=== PATIENT | male | born 1970 | race Caucasian/White ===

== ENCOUNTER → 2016-12-20 | Outpatient (CLI) | payer OTHER ==
[2016-12-20 17:05] LABS: ALBUMIN 4.1 GM/DL (3.2-5.2); ALBUMIN/GLOBULIN RATIO 1.46 (1.00-1.93); ALKALINE PHOSPHATASE 54 U/L (45-117); ALT/SGPT 50 U/L (12-78); ANION GAP 8 MEQ/L (8-16); AST/SGOT 30 U/L (15-37); BILIRUBIN,TOTAL 1.3 MG/DL (0.2-1.0); BLOOD UREA NITROGEN 11 MG/DL (7-18); CALCIUM LEVEL 9.4 MG/DL (8.5-10.1); CARBON DIOXIDE LEVEL 29 MEQ/L (21-32); CHLORIDE LEVEL 102 MEQ/L (98-107); CHOLESTEROL LEVEL 184 MG/DL (<200); CREATININE FOR GFR 1.07 MG/DL (0.70-1.30); FREE T4 1.06 NG/DL (0.76-1.46); GLOMERULAR FILTRATION RATE > 60.0 (>60); GLUCOSE, FASTING 81 MG/DL (70-105); SODIUM LEVEL 139 MEQ/L (136-145); TOTAL PROTEIN 6.9 GM/DL (6.4-8.2); TRIGLYCERIDES LEVEL 187 MG/DL (<150)
[2016-12-20 18:00] LABS: MEAN CORPUSCULAR HEMOGLOBIN 31.3 pg (27.0-33.0); MEAN CORPUSCULAR HGB CONC 34.2 g/dl (32.0-36.5); MEAN CORPUSCULAR VOLUME 91.4 fl (80.0-96.0); RED CELL DISTRIBUTION WIDTH 12.2 % (11.5-14.5); WHITE BLOOD COUNT 6.8 K/mm3 (4.0-10.0)
[2016-12-20 19:15] LABS: EOSINOPHILS 1 % (0-5)
== END ==
LOC: M WUC 12:09
PROVIDERS: ATTEND Physician Assistant
DX: I10 Essential (primary) hypertension (principal)

== ENCOUNTER → 2018-08-16 | Outpatient (CLI) | payer OTHER ==
[2018-08-16 13:29] LABS: BASO # 0.1 10^3/uL (0.0-0.2); BASO % 0.9 % (0.0-1.0); EOS # 0.1 10^3/uL (0.0-0.50); EOS % 1.5 % (0.0-3.0); HEMATOCRIT 48.9 % (42.0-52.0); HEMOGLOBIN 16.8 g/dl (13.5-17.5); IMMATURE GRANULOCYTE % 0.3 % (0-3.0); LYMPH # 1.5 10^3/uL (1.5-4.5); LYMPH % 22.4 % (24.0-44.0); MEAN CORPUSCULAR HEMOGLOBIN 30.8 pg (27.0-33.0); MEAN CORPUSCULAR HGB CONC 34.4 g/dl (32.0-36.5); MEAN CORPUSCULAR VOLUME 89.7 fl (80.0-96.0); MONO # 0.8 10^3/uL (0.0-0.8); MONO % 11.2 % (0.0-5.0); NEUTROPHILS # 4.3 10^3/uL (1.8-7.7); NEUTROPHILS % 63.7 % (36.0-66.0); PLATELET COUNT, AUTOMATED 303 10^3/uL (150-450); RED BLOOD COUNT 5.45 10^6/uL (4.30-6.10); WHITE BLOOD COUNT 6.7 10^3/uL (4.0-10.0)
[2018-08-16 14:02] LABS: ALBUMIN 4.2 GM/DL (3.2-5.2); ALBUMIN/GLOBULIN RATIO 1.31 (1.00-1.93); ALKALINE PHOSPHATASE 52 U/L (45-117); ALT/SGPT 41 U/L (12-78); AMYLASE 62 U/L (25-115); ANION GAP 9 MEQ/L (8-16); AST/SGOT 21 U/L (7-37); BILIRUBIN,TOTAL 2.4 MG/DL (0.2-1.0); BLOOD UREA NITROGEN 11 MG/DL (7-18); CARBON DIOXIDE LEVEL 28 MEQ/L (21-32); CHLORIDE LEVEL 103 MEQ/L (98-107); CK-MB VALUE MASS < 1.0 NG/ML (<3.6); CPK CREATINE PHOSPHOKINASE 122 U/L (39-308); CREATININE FOR GFR 1.14 MG/DL (0.70-1.30); FREE T4 1.14 NG/DL (0.76-1.46); GLOMERULAR FILTRATION RATE > 60.0 (>60); GLUCOSE, FASTING 91 MG/DL (70-100); LIPASE 120 U/L (73-393); MB/CK RELATIVE INDEX 0.82 (< OR =4); POTASSIUM SERUM 4.2 MEQ/L (3.5-5.1); SODIUM LEVEL 140 MEQ/L (136-145); TOTAL PROTEIN 7.4 GM/DL (6.4-8.2)
== END ==
LOC: M WUC 12:28
DX: R07.9 Chest pain, unspecified (principal)
CPT/HCPCS: 82150

== ENCOUNTER 2018-09-02 09:08 | Day surgery (SDC) | payer OTHER ==
[~2018-09-02] VITALS: Ht 188 cm; Wt 148.3 kg
[~2018-09-02 09:08] MED LIST: LOSA25TA14 PO; ZANTTAB PO
[2018-09-02] MEDS ORDERED: fentaNYL 100 MCG/2 ML INJECTION (J3010) As Ordered ONE (11:27)
[2018-09-02] MEDS ORDERED: LIDOCAINE 2% INJ 100 MG/5 ML SDV (FOR ANES.) As Ordered ONE (11:27)
[2018-09-02] MEDS ORDERED: PROPOFOL 200 MG/20 ML VIAL As Ordered ONE (11:27)
--- NOTE | 2018-09-02 11:35 | ROOR ---
Patient Name: Aneesh Riley Procedure Date: 09/02/2018 11:14 AM Date of : 1970 Age: 48 Room: [facility] Gender: Male Note Status: Finalized Procedure: Upper GI endoscopy Indications: Epigastric abdominal pain Providers: Ric Paiz MD Referring MD: Rolf Rg NP Requesting Provider: Medicines: Monitored Anesthesia Care Complications: No immediate complications. Procedure: Pre-Anesthesia Assessment: - Prior to the procedure, a History and Physical was performed, and patient medications and allergies were reviewed. The patient is competent. The risks and benefits of the procedure and the sedation options and risks were discussed with the patient. All questions were answered and informed consent was obtained. Patient identification and proposed procedure were verified by the physician, the nurse and the plant controller in the endoscopy suite. Mental Status Examination: alert and oriented. Airway Examination: normal oropharyngeal airway and neck mobility. Respiratory Examination: clear to auscultation. CV Examination: normal. Prophylactic Antibiotics: The patient does not require prophylactic antibiotics. Prior Anticoagulants: The patient has taken no previous anticoagulant or antiplatelet agents. ASA Grade Assessment: II - A patient with mild systemic disease. After reviewing the risks and benefits, the patient was deemed in satisfactory condition to undergo the procedure. The anesthesia plan was to use monitored anesthesia care (MAC). Immediately prior to administration of medications, the patient was re-assessed for adequacy to receive sedatives. The heart rate, respiratory rate, oxygen saturations, blood pressure, adequacy of pulmonary ventilation, and response to care were monitored throughout the procedure. The physical status of the patient was re-assessed after the procedure. The Endoscope was introduced through the mouth, and advanced to the second part of duodenum. The upper GI endoscopy was accomplished without difficulty. The patient tolerated the procedure well. Findings: There is no endoscopic evidence of bleeding, esophagitis, inflammation, stenosis or stricture in the entire esophagus. A small hiatal hernia was present. The Z-line was regular and was found 40 cm from the incisors. Two localized, diminutive non-bleeding erosions were found at the pylorus. There were no stigmata of recent bleeding. Biopsies were taken with a cold forceps for Helicobacter pylori testing. Estimated blood loss was minimal. The duodenal bulb, first portion of the duodenum and second portion of the duodenum were normal. Impression: - Small hiatal hernia. - Z-line regular, 40 cm from the incisors. - Non-bleeding erosive gastropathy. Biopsied. - Normal duodenal bulb, first portion of the duodenum and second portion of the duodenum. Recommendation: - Telephone my office for pathology results in 2 weeks. - Continue present medications. - Discharge patient to home (ambulatory). Ric Paiz MD Ric Paiz MD 09/02/2018 11:34:42 AM This report has been signed electronically. Number of Addenda: 0 Note Initiated On: 09/02/2018 11:14 AM Estimated Blood Loss: Estimated blood loss was minimal.
[2018-09-02 12:05] VITALS: BP 133/87
== END 2018-09-02 12:03 | disposition home or self-care (01) ==
LOC: M OPP 09:08
PROVIDERS: ATTEND Surgery
DX: K44.9 Diaphragmatic hernia without obstruction or gangrene (principal); K31.89 Other diseases of stomach and duodenum; R10.13 Epigastric pain
CPT/HCPCS: 43239; 88305; J3010

== ENCOUNTER → 2019-03-09 | Outpatient (REF) | payer OTHER ==
[2019-03-09 18:50] LABS: AMYLASE 66 U/L (25-115); LIPASE 118 U/L (73-393)
== END ==
LOC: M LAB REF 16:46
PROVIDERS: ATTEND Nurse Practitioner Family
DX: R10.9 Unspecified abdominal pain (principal); R63.4 Abnormal weight loss

== ENCOUNTER → 2019-10-14 | Outpatient (CLI) | payer OTHER ==
[~2019-10-14] MED LIST changes: +ISOVUE-370 76% 100ML VIAL (Q9967) As Ordered ONE; +ZANT150T40 PO; -ZANTTAB PO
--- NOTE | 2019-10-15 05:20 | REP ---
Clinical: Chronic avascular disorder. Abnormal weight loss. Technique: Axial contrast enhanced angiographic images from the lung bases to the pubic symphysis using 100 ml Isovue 370 intravenous contrast material with images obtained at maximal arterial enhancement. Coronal and sagittal re-formations, MIP images, and volume rendered 3-D images of the aorta/arterial vasculature obtained. Findings: Abdominal aorta, celiac axis, superior mesenteric artery, solitary bilateral renal arteries, inferior mesenteric artery as well as bilateral iliac arteries and associated branch vessels through the pelvis to the level of bifurcation of the common femoral arteries appear patent and normal. No atherosclerotic changes, areas of aneurysm/dissection, narrowing or stenosis/occlusion appreciated. Liver, spleen, pancreas, bilateral adrenal glands and kidneys are normal. Cholelithiasis noted. The enteric system is without obstruction or acute inflammatory process. Normal terminal ileum, cecum and appendix identified in the right lower quadrant. Few scattered colonic and sigmoid diverticula noted without acute diverticulitis. Pelvis demonstrates normal bladder and prostate/seminal vesicles. No ascites. No free air. No adenopathy. Musculoskeletal structures are intact. Impression: 1. Normal aorta and abdominopelvic arterial vasculature. 2. Cholelithiasis. 3. Few scattered colonic diverticula. 4. No further acute abdominopelvic pathology appreciated. Electronically Signed by Jeremy Shelton MD 10/15/2019 05:11 A
== END ==
LOC: M RAD 14:29
PROVIDERS: ATTEND Internal Medicine Gastroenterology
DX: K55.1 Chronic vascular disorders of intestine (principal); R63.4 Abnormal weight loss; R10.9 Unspecified abdominal pain

== ENCOUNTER 2019-11-25 10:51 | Day surgery (SDC) | payer OTHER ==
[~2019-11-25] VITALS: Ht 185.4 cm; Wt 132.0 kg
[~2019-11-25 10:51] MED LIST changes: -ISOVUE-370 76% 100ML VIAL (Q9967) As Ordered ONE; +NS 1,000 ML IV ONE; +OMEP1CAP73 PO
[2019-11-25] MEDS ORDERED: propofoL 200 MG/20 ML VIAL As Ordered ONE (11:53)
[2019-11-25] MEDS ORDERED: fentaNYL 100 MCG/2 ML INJECTION (J3010) As Ordered ONE (12:31)
[2019-11-25] MEDS ORDERED: LIDOCAINE 2% INJ 100 MG/5 ML SDV (FOR ANES.) As Ordered ONE (12:31)
--- NOTE | 2019-11-25 13:12 | ROOR ---
Patient Name: Aneesh Riley Procedure Date: 11/25/2019 12:53 PM Date of : 1970 Age: 49 Room: [facility] Gender: Male Note Status: Finalized Procedure: Upper GI endoscopy Indications: Abdominal pain in the left upper quadrant Providers: Berny RUELAS MD Referring MD: ARPIT ALONSO NP Requesting Provider: Medicines: Monitored Anesthesia Care Complications: No immediate complications. Procedure: Pre-Anesthesia Assessment: - The heart rate, respiratory rate, oxygen saturations, blood pressure, adequacy of pulmonary ventilation, and response to care were monitored throughout the procedure. The Endoscope was introduced through the mouth, and advanced to the third part of duodenum. The upper GI endoscopy was accomplished without difficulty. The patient tolerated the procedure well. Findings: The Z-line was variable and was found 41 cm from the incisors. This was biopsied with a cold forceps for histology. The examined esophagus was normal. Mild gastritis, This was biopsied with a cold forceps for histology. (large volume) The exam of the stomach was otherwise normal. The examined duodenum was normal. Impression: -Normal esophagus with Z-line variable, 41 cm from the incisors. Biopsied. - Minimal gastritis. - Normal examined duodenum. (- no definite cause for LUQ pain seen on this exam) Recommendation: - Await pathology results. - Continue present medications. (Use dicyclomine as needed, Use Omeprazole daily) - Observe patient's clinical course. - Eat smaller, more frequent meals throughout the day. - Low fat diet. - Liquid/soft foods are tolerated better than solid foods. - Low fiber/well cooked vegetables are tolerated better than high fiber/fibrous foods/raw vegetables. - Avoid medications that inhibit gastric/intestinal motility such as narcotic medications. Berny Ruelas MD Berny RUELAS MD 11/25/2019 1:12:35 PM Electronically signed by Berny RUELAS MD Number of Addenda: 0 Note Initiated On: 11/25/2019 12:53 PM Estimated Blood Loss: Estimated blood loss: none.
--- NOTE | 2019-11-25 13:34 | ROOR ---
Patient Name: Aneesh Riley Procedure Date: 11/25/2019 12:54 PM Date of : 1970 Age: 49 Room: [facility] Gender: Male Note Status: Finalized Procedure: Colonoscopy Indications: Abdominal pain in the left upper quadrant, Weight loss Providers: Berny RUELAS MD Referring MD: ARPIT ALONSO NP Requesting Provider: Medicines: Monitored Anesthesia Care Complications: No immediate complications. Procedure: Pre-Anesthesia Assessment: - The heart rate, respiratory rate, oxygen saturations, blood pressure, adequacy of pulmonary ventilation, and response to care were monitored throughout the procedure. The Colonoscope was introduced through the anus and advanced to 10 cm into the ileum. The colonoscopy was performed without difficulty. The patient tolerated the procedure well. The quality of the bowel preparation was good. Findings: The perianal and digital rectal examinations were normal. A 5 mm polyp was found in the ascending colon. The polyp was sessile. The polyp was removed with a cold snare. Resection and retrieval were complete. Mild sigmoid diverticulosis and small internal hemorrhoids. The exam was otherwise without abnormality. Impression: - One 5 mm polyp in the ascending colon, removed with a cold snare. Resected and retrieved. - Mild sigmoid diverticulosis and small internal hemorrhoids. - The colon was otherwise normal. - The examined portion of the ileum was normal. Recommendation: - Use fiber, for example Citrucel, Fibercon, Konsyl or Metamucil. - Take Bentyl (dicyclomine) 20 mg by mouth every four to six hours as needed 30 minutes before meals. - Repeat colonoscopy in 5 years for surveillance. Berny Ruelas MD Berny RUELAS MD 11/25/2019 1:34:35 PM Electronically signed by Berny RUELAS MD Number of Addenda: 0 Note Initiated On: 11/25/2019 12:54 PM Estimated Blood Loss: Estimated blood loss: none.
[2019-11-25 14:15] VITALS: BP 155/78
== END 2019-11-25 14:24 | disposition home or self-care (01) ==
LOC: M OPP 10:51
PROVIDERS: ATTEND Internal Medicine Gastroenterology
DX: D12.2 Benign neoplasm of ascending colon (principal); R10.2 Pelvic and perineal pain; R63.4 Abnormal weight loss; K57.30 Diverticulosis of large intestine without perforation or abscess without bleeding; K64.8 Other hemorrhoids; K29.50 Unspecified chronic gastritis without bleeding; K22.8 Other specified diseases of esophagus; R10.12 Left upper quadrant pain; K21.9 Gastro-esophageal reflux disease without esophagitis; Z79.899 Other long term (current) drug therapy
CPT/HCPCS: 43239; 45385; 88305; J3010

== ENCOUNTER → 2020-01-12 | Outpatient (CLI) | payer OTHER ==
[~2020-01-12] MED LIST changes: -NS 1,000 ML IV ONE
== END ==
LOC: M PLALAB 11:16
PROVIDERS: ATTEND Nurse Practitioner Family
DX: R07.9 Chest pain, unspecified (principal)

== ENCOUNTER → 2020-01-28 | Outpatient (CLI) | payer OTHER ==
--- NOTE | 2020-01-28 13:04 | REP ---
NUCLEAR GASTRIC EMPTYING SCAN: Following the oral administration of 1.08 mCi technetium-99m sulfur colloid, multiple images of the upper abdomen are performed in the anterior and posterior projections for 90 minutes. Gastric activity is measured. At the end of 90 minutes, 65% of the ingested activity has emptied from the stomach. T1/2 is calculated to be 71 minutes. This is normal. IMPRESSION: Normal gastric emptying. Electronically Signed by Jordan Reynaga MD 01/28/2020 01:12 P
== END ==
LOC: M RAD 08:08
PROVIDERS: ATTEND Internal Medicine Gastroenterology
DX: K31.84 Gastroparesis (principal)
CPT/HCPCS: 78264; A9541

== ENCOUNTER → 2020-02-16 | Outpatient (CLI) | payer OTHER ==
[2020-02-16 12:31] LABS: BASO # 0.1 10^3/uL (0.0-0.2); BASO % 0.8 % (0.0-1.0); EOS # 0.2 10^3/uL (0.0-0.5); EOS % 3.3 % (0.0-3.0); HEMATOCRIT 44.9 % (42.0-52.0); HEMOGLOBIN 15.3 g/dl (13.5-17.5); LYMPH # 1.5 10^3/uL (1.5-5.0); LYMPH % 24.9 % (24.0-44.0); MEAN CORPUSCULAR HEMOGLOBIN 30.8 pg (27.0-33.0); MEAN CORPUSCULAR HGB CONC 34.1 g/dl (32.0-36.5); MEAN CORPUSCULAR VOLUME 90.3 fl (80.0-96.0); MONO # 0.7 10^3/uL (0.0-0.8); MONO % 11.6 % (0.0-5.0); NEUTROPHILS # 3.6 10^3/uL (1.5-8.5); NEUTROPHILS % 58.9 % (36.0-66.0); PLATELET COUNT, AUTOMATED 301 10^3/uL (150-450); RED BLOOD COUNT 4.97 10^6/uL (4.30-6.10); WHITE BLOOD COUNT 6.1 10^3/uL (4.0-10.0)
[2020-02-16 13:06] LABS: BILIRUBIN,DIRECT 0.3 MG/DL (0.0-0.2); BILIRUBIN,TOTAL 1.5 MG/DL (0.2-1.0); FREE T4 1.2 NG/DL (0.76-1.46); THYROID STIMULATING HORMONE 1.81 uIU/ML (0.358-3.740); TOTAL PROTEIN 6.9 GM/DL (6.4-8.2)
--- NOTE | 2020-02-16 15:13 | REP ---
TWO-VIEW CHEST: REASON FOR EXAM: Weight loss. COMPARISON: No priors. FINDINGS: The superior mediastinal structures are midline. The cardiac silhouette is unremarkable in size, shape, and position. The diaphragmatic surfaces of the lungs are regular, and the costophrenic angles are clear. The pulmonary murphy are clear. The imaged osseous structures are intact. IMPRESSION: There is no acute cardiopulmonary disease. Electronically Signed by Jordan Willard DO 02/16/2020 03:23 P
== END ==
LOC: M LAB 11:55
PROVIDERS: ATTEND Internal Medicine Gastroenterology
DX: R63.4 Abnormal weight loss (principal)

== ENCOUNTER → 2020-03-20 | Outpatient (CLI) | payer OTHER ==
--- NOTE | 2020-03-20 09:48 | REP ---
REASON: Abdominal pain. PRIORS: None. Multiple ultrasonographic images of the liver show the hepatic parenchymal echo pattern to be within normal limits. There is no evidence of intrahepatic or extrahepatic ductal dilatation. The common bile duct measures 8 mm in its greatest transverse dimension. Multiple ultrasonographic images of gallbladder show multiple echogenic foci within the gallbladder lumen, which are mobile and cast acoustic shadows. There is no pericholecystic edema or gallbladder wall thickening. The imaged portion of the right kidney is within normal limits. The pancreas could not be visualized due to the patient's intestinal gas pattern. IMPRESSION: Cholelithiasis. Electronically Signed by Jordan Willard DO 03/20/2020 01:22 P
--- NOTE | 2020-03-20 09:52 | REP ---
HIDA SCAN: Following the intravenous administration of 6.6 millicuries technetium 99m Mebrofenin, multiple images of the right upper quadrant performed for 1 hour. There is homogeneous radiotracer uptake throughout the liver. There is visualization of the gallbladder at 10 minutes post injection. There is biliary to bowel transit at 25 minutes post injection. IMPRESSION: No scintigraphic evidence of cholecystitis. Electronically Signed by Jordan Reynaga MD 03/20/2020 11:28 A
== END ==
LOC: M RAD 07:07
PROVIDERS: ATTEND Internal Medicine Gastroenterology
DX: R10.12 Left upper quadrant pain (principal); K80.80 Other cholelithiasis without obstruction; R11.0 Nausea
CPT/HCPCS: 76705; 78226; A9537

== ENCOUNTER → 2020-08-21 | Outpatient (CLI) | payer SELFPAY | LOC: M LABSMTC 14:52 | PROVIDERS: ATTEND Pediatrics | DX: Z20.828 Contact with and (suspected) exposure to other viral communicable diseases (principal) ==

== ENCOUNTER → 2020-09-18 | Outpatient (REF) | payer OTHER ==
[2020-09-18 13:05] LABS: AMYLASE 183 U/L (25-115); LIPASE 133 U/L (73-393)
== END ==
LOC: M LAB REF 12:13
PROVIDERS: ATTEND Physician Assistant Medical
DX: R10.12 Left upper quadrant pain (principal)

== ENCOUNTER → 2020-10-03 | Outpatient (CLI) | payer SELFPAY | LOC: M LABSMTC 10:39 | PROVIDERS: ATTEND Pediatrics | DX: Z20.822 Contact with and (suspected) exposure to COVID-19 (principal) ==

== ENCOUNTER → 2020-11-17 | Outpatient (CLI) | payer SELFPAY | LOC: M LABSMTC 10:50 | PROVIDERS: ATTEND Pediatrics | DX: Z11.52 Encounter for screening for COVID-19 (principal) ==

== ENCOUNTER → 2020-11-21 | Outpatient (CLI) | payer SELFPAY | LOC: M LABSMTC 09:39 | PROVIDERS: ATTEND Pediatrics | DX: Z11.52 Encounter for screening for COVID-19 (principal) ==

== ENCOUNTER → 2021-02-05 | Outpatient (CLI) | payer OTHER ==
[~2021-02-05] MED LIST changes: +GASTROGRAFIN SOLUTION 30ML (Q9963) As Ordered ONE; +ISOVUE-370 76% 100ML VIAL As Ordered ONE
--- NOTE | 2021-02-05 12:12 | REPVR ---
PROCEDURE INFORMATION: Exam: CT Abdomen And Pelvis With Contrast Exam date and time: 02/05/2021 11:46 AM Age: 50 years old Clinical indication: Other: Luq pain, wt loss, nausea TECHNIQUE: Imaging protocol: Computed tomography of the abdomen and pelvis with contrast. Radiation optimization: All CT scans at this facility use at least one of these dose optimization techniques: automated exposure control; mA and/or kV adjustment per patient size (includes targeted exams where dose is matched to clinical indication); or iterative reconstruction. Contrast material: ISOVUE 370; Contrast volume: 100 ml; Contrast route: INTRAVENOUS (IV); Other contrast: Oral, GASTROGRAPHIN, 10CC GASTRO IN 290 WATER x 2; COMPARISON: CT ANGIO ABD/PEL 10/14/2019 3:06 PM FINDINGS: Pleural spaces: No significant airspace or pleural disease. Liver: No focal hepatic mass. Gallbladder and bile ducts: Cholelithiasis. No biliary ductal dilatation. Pancreas: No pancreatic mass or ductal dilatation. Spleen: Enlarged spleen measuring 14.1 cm in length. 2.1 cm accessory spleen. Adrenal glands: Unremarkable adrenals. Kidneys and ureters: Normal renal morphology. Duplicated right collecting system, without hydronephrosis. Stomach and bowel: Normal caliber of small bowel. Diverticula, without pericolonic inflammation. Mild gastric antral wall thickening and nonspecific 9 mm nodular hypodensity contiguous with the posterior gastric wall (series 201: Image 44 and series 202: Image 36). Appendix: No acute appendicitis. Intraperitoneal space: No free fluid. Vasculature: Normal caliber of the abdominal aorta. Lymph nodes: Subcentimeter lymph nodes. Urinary bladder: Unremarkable bladder. Reproductive: Mildly enlarged prostate. Bones/joints: Degenerative change. IMPRESSION: 1. Cholelithiasis. 2. Mild gastric antral wall thickening and nonspecific 9 mm nodular hypodensity contiguous with the posterior gastric wall . 3. Additional findings as described above. Electronically signed by: Kelvin Mcdonough On 02/05/2021 12:12:41 PM
== END ==
LOC: M RAD 09:30
PROVIDERS: ATTEND Internal Medicine Gastroenterology
DX: K80.20 Calculus of gallbladder without cholecystitis without obstruction (principal); R10.12 Left upper quadrant pain; R63.4 Abnormal weight loss; R11.0 Nausea
CPT/HCPCS: 74177; Q9963; Q9967

== ENCOUNTER 2021-03-06 12:36 | Day surgery (SDC) | payer OTHER ==
[~2021-03-06] VITALS: Ht 185.4 cm; Wt 138.1 kg
[~2021-03-06 12:36] MED LIST changes: -GASTROGRAFIN SOLUTION 30ML (Q9963) As Ordered ONE; -ISOVUE-370 76% 100ML VIAL As Ordered ONE; +NS 1,000 ML IV ONE
[2021-03-06] MEDS ORDERED: LIDOCAINE 2% 100MG/5ML SDV (FOR ANES.) As Ordered ONE (13:35)
[2021-03-06] MEDS ORDERED: propofoL 200 MG/20 ML VIAL As Ordered ONE ×2 (13:35→13:45)
[2021-03-06] MEDS ORDERED: fentaNYL 100 MCG/2 ML INJECTION (J3010) As Ordered ONE (13:35)
--- NOTE | 2021-03-06 13:56 | ROOR ---
Patient Name: Aneesh Riley Procedure Date: 03/06/2021 1:36 PM Date of : 1970 Age: 50 Room: [facility] Gender: Male Note Status: Finalized Procedure: Upper GI endoscopy Indications: Abnormal CT of the GI tract Providers: Berny Ruelas MD Referring MD: MORGAN Hawkins Requesting Provider: Medicines: Monitored Anesthesia Care Complications: No immediate complications. Procedure: Pre-Anesthesia Assessment: - The heart rate, respiratory rate, oxygen saturations, blood pressure, adequacy of pulmonary ventilation, and response to care were monitored throughout the procedure. The Endoscope was introduced through the mouth, and advanced to the second part of duodenum. The upper GI endoscopy was accomplished without difficulty. The patient tolerated the procedure well. Findings: The examined esophagus was normal. A few 5 mm mucosal papules (nodules) were found in the prepyloric region of the stomach. Biopsies were taken with a cold forceps for histology. The exam of the stomach was otherwise normal. The examined duodenum was normal. Impression: - Normal esophagus. - A few peripyloric mucosal nodularities found in the stomach (dubioous significance). Biopsied. - Otherwise normal stomach. - Normal examined duodenum. Recommendation: - Observe patient's clinical course. - Continue present medications. - Follow an antireflux regimen. Procedure Code(s): --- Professional --- 38970, Esophagogastroduodenoscopy, flexible, transoral; with biopsy, single or multiple Diagnosis Code(s): --- Professional --- R93.3, Abnormal findings on diagnostic imaging of other parts of digestive tract K31.89, Other diseases of stomach and duodenum CPT copyright 2019 [employer]. All rights reserved. The codes documented in this report are preliminary and upon needle loom tender review may be revised to meet current compliance requirements. Berny Ruelas MD Berny Ruelas MD 03/06/2021 1:56:01 PM Electronically signed by Berny Ruelas MD Number of Addenda: 0 Note Initiated On: 03/06/2021 1:36 PM Estimated Blood Loss: Estimated blood loss: none.
[2021-03-06 14:20] VITALS: BP 129/68
== END 2021-03-06 14:25 | disposition home or self-care (01) ==
LOC: M OPP 12:36
PROVIDERS: ATTEND Internal Medicine Gastroenterology
DX: K31.89 Other diseases of stomach and duodenum (principal); K21.9 Gastro-esophageal reflux disease without esophagitis; R10.84 Generalized abdominal pain; R93.3 Abnormal findings on diagnostic imaging of other parts of digestive tract; Z79.899 Other long term (current) drug therapy
CPT/HCPCS: 43239; 88305; J3010

== ENCOUNTER → 2021-03-22 | Outpatient (CLI) | payer OTHER ==
[~2021-03-22] MED LIST changes: -NS 1,000 ML IV ONE
--- NOTE | 2021-03-22 09:23 | REP ---
INDICATION: PAIN COMPARISON: None. TECHNIQUE: Internal rotation, external rotation, and Y view. FINDINGS: No acute fracture or dislocation. Generalized age-related changes include subtle cortical irregularity at the acromioclavicular joint. The glenohumeral joint is intact and age-appropriate. No periarticular calcifications are identified. IMPRESSION: Essentially age-related changes. No overt osteoarthritic findings. No acute fracture or dislocation. <Electronically signed by Jeremy Shelton > 03/22/21 [id number]
--- NOTE | 2021-03-22 09:25 | REP ---
INDICATION: PAIN COMPARISON: None. TECHNIQUE: AP, lateral, flexion/extension, bilateral oblique, and open-mouth views. FINDINGS: Alignment and lordosis is maintained. There is no evidence for acute fracture / compression injury or subluxation. Advanced multilevel degenerative changes include osteophytosis, endplate sclerosis, and disc space narrowing. Findings most pronounced at C5-6, C6-7. Oblique views suggest mild narrowing to the associated C5-6 and C6-7 neural foramen. Open mouth view demonstrates normal C1-C2 articulation and odontoid process. IMPRESSION: Advanced multilevel degenerative spondylosis. <Electronically signed by Jeremy Shelton > 03/22/21 1105
[2021-03-22 13:47] LABS: AMYLASE 139 U/L (25-115); LIPASE 96 U/L (73-393)
== END ==
LOC: M WUC 08:58
PROVIDERS: ATTEND Physician Assistant Medical
DX: R10.12 Left upper quadrant pain (principal)

== ENCOUNTER → 2021-09-27 | Outpatient (REF) | payer OTHER ==
[~2021-09-27] MED LIST changes: +LOSA25TA13 PO; -LOSA25TA14 PO
[2021-09-28 11:13] LABS: ANTINUCLEAR ANTIBODIES DIRECT Negative (Negative)
== END ==
LOC: M LAB REF 09:57
PROVIDERS: ATTEND Physician Assistant Medical
DX: M31.6 Other giant cell arteritis (principal)

== ENCOUNTER → 2021-10-24 | Outpatient (CLI) | payer OTHER | LOC: M RAD 07:05 | PROVIDERS: ATTEND Physician Assistant Medical | DX: G50.1 Atypical facial pain (principal) ==

== ENCOUNTER → 2022-03-26 | Outpatient (REF) | payer OTHER | LOC: M LAB REF 12:15 | PROVIDERS: ATTEND Physician Assistant Medical | DX: Z11.59 Encounter for screening for other viral diseases (principal) ==

== ENCOUNTER → 2023-02-25 | Outpatient (CLI) | payer OTHER | LOC: M SLEEP 20:00 | PROVIDERS: ATTEND Internal Medicine Pulmonary Disease | DX: G47.30 Sleep apnea, unspecified (principal) ==

== ENCOUNTER 2023-11-22 11:35 | Observation (INO) | payer OTHER ==
[~2023-11-22] VITALS: Ht 188 cm; Wt 149.9 kg
[2023-11-22] MEDS ORDERED: ATOR1TAB19 PO (11:43)
[2023-11-22] MEDS ORDERED: SEMA2PEN SC (11:43)
[2023-11-22 12:25] LABS: BASO # 0.1 10^3/uL (0.0-0.2); BASO % 0.8 % (0.0-1.0); EOS # 0.1 10^3/uL (0.0-0.5); HEMATOCRIT 44.4 % (42.0-52.0); HEMOGLOBIN 15.4 g/dl (13.5-17.5); LYMPH # 1.3 10^3/uL (1.5-5.0); LYMPH % 19.8 % (24.0-44.0); MEAN CORPUSCULAR HEMOGLOBIN 31.1 pg (27.0-33.0); MEAN CORPUSCULAR HGB CONC 34.7 g/dl (32.0-36.5); MEAN CORPUSCULAR VOLUME 89.7 fl (80.0-96.0); MONO # 0.7 10^3/uL (0.0-0.8); MONO % 11.4 % (2.0-8.0); NEUTROPHILS # 4.2 10^3/uL (1.5-8.5); NEUTROPHILS % 66.8 % (36.0-66.0); PLATELET COUNT, AUTOMATED 275 10^3/uL (150-450); RED BLOOD COUNT 4.95 10^6/uL (4.30-6.10); WHITE BLOOD COUNT 6.3 10^3/uL (4.0-10.0)
[2023-11-22 12:42] LABS: INR 1.08; PARTIAL THROMBOPLASTIN TIME 28.6 SECONDS (24.8-34.2); PROTHROMBIN TIME 13.6 SECONDS (12.5-14.5)
[2023-11-22 12:50] LABS: CK-MB VALUE MASS < 1.0 NG/ML (<3.6)
[2023-11-22 12:52] LABS: ALBUMIN 3.9 G/DL (3.2-5.2); ALKALINE PHOSPHATASE 55 U/L (46-116); ALT/SGPT 40 U/L (7.0-40); AST/SGOT 21 U/L (<34); BILIRUBIN,TOTAL 1.9 MG/DL (0.3-1.2); BLOOD UREA NITROGEN 14 MG/DL (9-23); CALCIUM LEVEL 8.6 MG/DL (8.5-10.1); CARBON DIOXIDE LEVEL 27 MMOL/L (20-31); CHLORIDE LEVEL 106 MMOL/L (98-107); CREATININE FOR GFR 1.02 MG/DL (0.70-1.30); GLOMERULAR FILTRATION RATE > 60.0 (>56); GLUCOSE, FASTING 85 MG/DL (60-100); POTASSIUM SERUM 4.3 MMOL/L (3.5-5.1); SODIUM LEVEL 139 MMOL/L (136-145); TOTAL PROTEIN 6.4 G/DL (5.7-8.2)
[2023-11-22 12:54] LABS: CPK CREATINE PHOSPHOKINASE 142 U/L (46-171)
[2023-11-22 12:56] LABS: FREE T4 1.1 NG/DL (0.89-1.76); THYROID STIMULATING HORMONE 2.642 uIU/ML (0.55-4.78)
[2023-11-22] MEDS ORDERED: ISOVUE-370 76% 100ML VIAL As Ordered ONE (12:59)
[2023-11-22 13:06] LABS: RSV AMPLIFICATION NEGATIVE (NEGATIVE)
[2023-11-22] MEDS: ASPIRIN 325 MG TAB PO ONE (14:46)
[2023-11-22] MEDS ORDERED: HOME MED LIST COMPLETE! XX SCH (14:50)
[2023-11-22 16:51] LABS: CHOLESTEROL RISK RATIO 3.22 (<5); LDL CHOLESTEROL 71.6 MG/DL (<100)
[2023-11-22 17:21] LABS: HEMOGLOBIN A1c 5.4 % (4.0-6.0)
[2023-11-22 19:34] VITALS: BP 143/74; TEMP 97.8; O2SAT 97
[2023-11-22] MEDS: ATORVASTATIN 10 MG TAB PO SCH (20:26)
[2023-11-22] MEDS: OMEPRAZOLE 20MG CAP PO SCH (20:26)
[2023-11-22 20:30] VITALS: BP 143/74
[2023-11-22] MEDS: LOSARTAN 25 MG TAB PO SCH (20:30)
[2023-11-22 23:10] VITALS: BP 125/70; TEMP 97.3; O2SAT 96
[2023-11-23 03:27] VITALS: BP 114/63; TEMP 97.6; O2SAT 96
[2023-11-23 05:42] LABS: BASO # 0.1 10^3/uL (0.0-0.2); BASO % 0.9 % (0.0-1.0); EOS # 0.1 10^3/uL (0.0-0.5); EOS % 1.8 % (0.0-3.0); HEMATOCRIT 43.5 % (42.0-52.0); LYMPH # 1.5 10^3/uL (1.5-5.0); LYMPH % 22.4 % (24.0-44.0); MEAN CORPUSCULAR HGB CONC 34.5 g/dl (32.0-36.5); MEAN CORPUSCULAR VOLUME 89.9 fl (80.0-96.0); MONO # 0.8 10^3/uL (0.0-0.8); MONO % 12.5 % (2.0-8.0); NEUTROPHILS # 4.1 10^3/uL (1.5-8.5); NEUTROPHILS % 62.1 % (36.0-66.0); PLATELET COUNT, AUTOMATED 246 10^3/uL (150-450); RED BLOOD COUNT 4.84 10^6/uL (4.30-6.10); WHITE BLOOD COUNT 6.7 10^3/uL (4.0-10.0)
[2023-11-23 05:52] LABS: BLOOD UREA NITROGEN 12 MG/DL (9-23); CALCIUM LEVEL 8.9 MG/DL (8.5-10.1); CARBON DIOXIDE LEVEL 28 MMOL/L (20-31); CHLORIDE LEVEL 105 MMOL/L (98-107); GLOMERULAR FILTRATION RATE > 60.0 (>56); GLUCOSE, FASTING 87 MG/DL (60-100); MAGNESIUM LEVEL 2.1 MG/DL (1.8-2.4); POTASSIUM SERUM 3.9 MMOL/L (3.5-5.1); SODIUM LEVEL 139 MMOL/L (136-145)
[2023-11-23] MEDS: ASPIRIN 81MG ENTERIC TABLET PO SCH (08:13)
[2023-11-23 08:18] VITALS: BP 142/82; TEMP 97.7; O2SAT 97
[2023-11-23] MEDS ORDERED: ASPI81TAEC PO (10:17)
[2023-11-23] MEDS ORDERED: ENOXAPARIN 40MG/0.4ML SYRINGE (J1650 PER 10MG) SC SCH (21:00)
== END 2023-11-23 11:37 | disposition home or self-care (01) ==
LOC: M ED 11:35 → M ED INP 11:36 → M PCU 18:33
PROVIDERS: ADMIT Internal Medicine; ATTEND Internal Medicine
DX: R29.810 Facial weakness (principal); R20.0 Anesthesia of skin; R26.81 Unsteadiness on feet; I67.82 Cerebral ischemia; I10 Essential (primary) hypertension; G31.9 Degenerative disease of nervous system, unspecified; G47.33 Obstructive sleep apnea (adult) (pediatric); E78.5 Hyperlipidemia, unspecified; R73.03 Prediabetes; K21.9 Gastro-esophageal reflux disease without esophagitis; K44.9 Diaphragmatic hernia without obstruction or gangrene; E66.9 Obesity, unspecified; Z68.41 Body mass index [BMI] 40.0-44.9, adult; Z82.61 Family history of arthritis; Z83.3 Family history of diabetes mellitus; Z79.899 Other long term (current) drug therapy; Z79.84 Long term (current) use of oral hypoglycemic drugs
CPT/HCPCS: 36415; 70450; 70496; 70498; 70551; 71045; 80048; 80053; 80061; 82550; 82553; 83036; 83735; 84439; 84443; 84484; 85025; 85610; 85730; 87631; 93005; 93041; 94760; 97161; 97530; 99285; Q9967

== ENCOUNTER 2023-12-05 18:38 | Emergency (ER) | payer OTHER ==
[~2023-12-05] VITALS: Ht 188 cm; Wt 148.5 kg
[~2023-12-05 18:38] MED LIST changes: +ASPI81TAEC PO; +ATOR1TAB19 PO; +SEMA2PEN SC
[2023-12-05 19:02] VITALS: TEMP 98.8
[2023-12-05 19:20] LABS: BASO # 0.1 10^3/uL (0.0-0.2); BASO % 0.9 % (0.0-1.0); EOS # 0.1 10^3/uL (0.0-0.5); EOS % 0.9 % (0.0-3.0); HEMOGLOBIN 15.4 g/dl (13.5-17.5); LYMPH # 1.5 10^3/uL (1.5-5.0); LYMPH % 18.8 % (24.0-44.0); MEAN CORPUSCULAR VOLUME 88.7 fl (80.0-96.0); MONO # 0.8 10^3/uL (0.0-0.8); MONO % 9.9 % (2.0-8.0); NEUTROPHILS # 5.6 10^3/uL (1.5-8.5); NEUTROPHILS % 69.4 % (36.0-66.0); PLATELET COUNT, AUTOMATED 288 10^3/uL (150-450); RED BLOOD COUNT 4.96 10^6/uL (4.30-6.10); WHITE BLOOD COUNT 8.1 10^3/uL (4.0-10.0)
[2023-12-05 19:37] LABS: BLOOD UREA NITROGEN 12 MG/DL (9-23); CALCIUM LEVEL 9.3 MG/DL (8.5-10.1); CARBON DIOXIDE LEVEL 26 MMOL/L (20-31); CHLORIDE LEVEL 107 MMOL/L (98-107); CK-MB VALUE MASS 1.4 NG/ML (<3.6); CREATININE FOR GFR 1.04 MG/DL (0.70-1.30); GLOMERULAR FILTRATION RATE > 60.0 (>56); GLUCOSE, FASTING 146 MG/DL (60-100); POTASSIUM SERUM 3.5 MMOL/L (3.5-5.1); SODIUM LEVEL 137 MMOL/L (136-145)
[2023-12-05 19:39] LABS: CPK CREATINE PHOSPHOKINASE 275 U/L (46-171)
[2023-12-05] MEDS ORDERED: FAMOTIDINE 20MG/2ML VIAL IVP ONE (19:50)
[2023-12-05] MEDS: PANTOPRAZOLE 40MG TAB (PROTONIX) PO ONE (20:03)
[2023-12-05 20:43] LABS: CK-MB VALUE MASS 1.2 NG/ML (<3.6)
[2023-12-05 20:47] LABS: MB/CK RELATIVE INDEX 0.45 (< OR =4)
[2023-12-05 21:08] VITALS: BP 128/80; O2SAT 94
[2023-12-05] MEDS ORDERED: PEPC1TAB5 PO (21:15)
[2023-12-05] MEDS ORDERED: HYDR-643 PO (21:15)
[2023-12-05] MEDS ORDERED: PROT1TAB2 PO (21:15)
== END 2023-12-05 21:33 | disposition home or self-care (01) ==
LOC: M ED 18:38
DX: R07.9 Chest pain, unspecified (principal); K30 Functional dyspepsia; I10 Essential (primary) hypertension; E78.5 Hyperlipidemia, unspecified; K21.9 Gastro-esophageal reflux disease without esophagitis; Z79.899 Other long term (current) drug therapy; Z79.82 Long term (current) use of aspirin

== ENCOUNTER → 2024-03-30 | Outpatient (REF) | payer OTHER ==
[~2024-03-30] MED LIST changes: +HYDR-643 PO; +PEPC1TAB5 PO; +PROT1TAB2 PO
== END ==
LOC: M LAB REF 13:09
PROVIDERS: ATTEND Physician Assistant Medical
DX: Z11.59 Encounter for screening for other viral diseases (principal)

== ENCOUNTER → 2024-10-14 | Outpatient (REF) | payer OTHER | LOC: M SFHCDERM 17:36 | PROVIDERS: ATTEND Nurse Practitioner Family | DX: D22.5 Melanocytic nevi of trunk (principal) ==

== ENCOUNTER 2025-06-23 09:02 | Day surgery (SDC) | payer OTHER ==
[~2025-06-23] VITALS: Ht 185.4 cm; Wt 140.6 kg
[~2025-06-23 09:02] MED LIST changes: +TIRZ10PE3 SQ
[2025-06-23 10:40] VITALS: TEMP 97.5
[2025-06-23 10:55] VITALS: BP 118/65; O2SAT 96
== END 2025-06-23 11:03 | disposition home or self-care (01) ==
LOC: M OPP 09:02
PROVIDERS: ATTEND Internal Medicine Gastroenterology
DX: D12.5 Benign neoplasm of sigmoid colon (principal); D12.4 Benign neoplasm of descending colon; K57.30 Diverticulosis of large intestine without perforation or abscess without bleeding; K64.8 Other hemorrhoids; Z86.0100 Personal history of colon polyps, unspecified; R10.9 Unspecified abdominal pain; G47.30 Sleep apnea, unspecified; Z79.82 Long term (current) use of aspirin; Z79.85 Long-term (current) use of injectable non-insulin antidiabetic drugs; Z79.899 Other long term (current) drug therapy
CPT/HCPCS: 43235; 45380; 88305; J3010

== ENCOUNTER → 2025-06-29 | Outpatient (CLI) | payer OTHER | LOC: M RAD 08:40 | PROVIDERS: ATTEND Physician Assistant Medical | DX: K40.91 Unilateral inguinal hernia, without obstruction or gangrene, recurrent (principal) ==